=== PATIENT | female | born 1965 | race Two or more races ===

== ENCOUNTER 2022-09-28 06:00 | Day surgery (SDC) | payer OTHER ==
[~2022-09-28 06:00] MED LIST: GLIPIZIDE XL2.5 MG PO; HORIZANT600 MG PO; LIPITOR20 MG PO; LOREEV XR2 MG PO; SYNTHROID137 MCG PO; TRAZODONE HCL100 MG PO
== END 2022-09-28 14:55 | disposition home or self-care (01) ==
LOC: CIR.AMB 06:00 → EDBD 08:45 → CIR.AMB 08:45
PROVIDERS: ATTEND Colon & Rectal Surgery
DX: K64.4 Residual hemorrhoidal skin tags (principal); K64.2 Third degree hemorrhoids; K64.8 Other hemorrhoids; Z88.6 Allergy status to analgesic agent; Z20.822 Contact with and (suspected) exposure to COVID-19; E11.40 Type 2 diabetes mellitus with diabetic neuropathy, unspecified; Z79.84 Long term (current) use of oral hypoglycemic drugs